=== PATIENT | male | born 1955 | race Caucasian/White ===

== ENCOUNTER 2016-08-08 07:10 | Day surgery (SDC) | payer BC ==
[~2016-08-08] VITALS: Ht 182.9 cm; Wt 78.0 kg
[2016-08-08] MEDS ORDERED: SIMETHICONE 40 MG/0.6 ML ML ONE (07:49)
[2016-08-08] MEDS ORDERED: MIDAZOLAM HCL 5 MG/5 ML VIAL ONE (07:53)
[2016-08-08] MEDS ORDERED: GLYCOPYRROLATE 0.2 MG/ML VIAL ONE (07:54)
[2016-08-08] MEDS ORDERED: MEPERIDINE HCL/PF 100 MG/ML AMP ONE (07:54)
[2016-08-08 09:58] VITALS: BP 112/78; PULSE 66; RESP 14
== END 2016-08-08 10:30 | disposition home or self-care (01) ==
LOC: SDS 07:10 → SMU 07:22 → SDS 10:30
PROVIDERS: ATTEND Colon & Rectal Surgery
DX: Z09 Encounter for follow-up examination after completed treatment for conditions other than malignant neoplasm (principal); Z86.010 Personal history of colon polyps; D12.5 Benign neoplasm of sigmoid colon; K64.8 Other hemorrhoids; K62.9 Disease of anus and rectum, unspecified
CPT/HCPCS: 45380; 88305; J2175; J2250; J7030; J3490